=== PATIENT | female | born 1985 | race Caucasian/White ===

== ENCOUNTER 2016-11-14 15:13 | Outpatient (CLI) | payer OTHER ==
[2016-11-14 15:57] LABS: BASOPHILS # (AUTO) 0.1 10^3/uL (0.0-0.1); BASOPHILS % (AUTO) 0.6 %; EOSINOPHILS # (AUTO) 0.2 10^3/uL (0.0-0.7); EOSINOPHILS % (AUTO) 2.6 %; HCT - HEMATOCRIT 38.8 % (37.0-47.0); HGB - HEMOGLOBIN 13.1 g/dL (12.0-16.0); LYMPHOCYTES # (AUTO) 1.7 10^3/uL (1.5-3.5); LYMPHOCYTES % (AUTO) 18.9 %; MEAN CORPUSCULAR HEMOGLOBIN 30.5 pg (27.0-31.0); MEAN CORPUSCULAR HGB CONC 33.7 g/dL (32.0-36.0); MEAN CORPUSCULAR VOLUME 90.4 fL (81.0-99.0); MEAN PLATELET VOLUME 7.5 fL (7.9-10.8); MONOCYTES # (AUTO) 0.5 10^3/uL (0.0-1.0); MONOCYTES % (AUTO) 5.7 %; NEUTROPHILS # (AUTO) 6.5 10^3/uL (1.5-6.6); NEUTROPHILS % (AUTO) 72.2 %; RED BLOOD COUNT 4.29 10^6/uL (4.20-5.40); RED CELL DISTRIBUTION WIDTH 15.3 % (12.0-15.0)
[2016-11-14 16:10] LABS: ALBUMIN/GLOBULIN RATIO 1.3 (1.0-2.2); BILIRUBIN,TOTAL 0.3 mg/dL (0.2-1.0); BUN - BLOOD UREA NITROGEN 10 mg/dL (6-20); CALCIUM 8.8 mg/dL (8.5-10.3); CARBON DIOXIDE - CO2 26 mmol/L (21-32); CHLORIDE 106 mmol/L (101-111); CREATININE 0.6 mg/dL (0.4-1.0); GFR - MDRD 117 (>89); GLUCOSE 107 mg/dL (70-100); MAGNESIUM 1.9 mg/dL (1.7-2.8); POTASSIUM 3.4 mmol/L (3.5-5.0); SODIUM 138 mmol/L (135-145); TOTAL PROTEIN 6.8 g/dL (6.7-8.2)
[2016-11-14 16:51] LABS: IRON 87 ug/dL (28-170); TOTAL IRON BINDING CAPACITY 370 ug/dL (250-450); TRANSFERRIN 264 mg/dL (192-382)
[2016-11-14 16:53] LABS: FERRITIN 8.2 ng/mL (11.0-306.8)
[2016-11-14 17:38] LABS: FOLATE > 49.60 ng/mL (5.90 - >24.8)
== END 2016-11-14 15:14 | disposition home or self-care (01) ==
LOC: LAB 15:13
PROVIDERS: ATTEND Physician Assistant
DX: K50.80 Crohn's disease of both small and large intestine without complications (principal); R19.7 Diarrhea, unspecified
CPT/HCPCS: 36415; 80053; 82306; 82607; 82728; 82746; 83540; 83735; 84466; 84630; 85025; 85651; 86140

== ENCOUNTER 2016-11-16 12:00 | Outpatient (CLI) | payer OTHER ==
[2016-11-21 18:02] LABS: TEST RESULT REPORT (())
== END 2016-11-16 12:01 | disposition home or self-care (01) ==
LOC: LAB.R 12:00
PROVIDERS: ATTEND Physician Assistant
DX: R19.7 Diarrhea, unspecified (principal); K50.80 Crohn's disease of both small and large intestine without complications
CPT/HCPCS: 81599; 83993

== ENCOUNTER 2016-12-06 10:01 | Outpatient (CLI) | payer OTHER ==
[2016-12-07 14:37] LABS: HEPATITIS A AB TOTAL(IMMUNITY) NON-REACTIVE (NON-REACTIVE)
[2016-12-10 16:56] LABS: TEST RESULT REPORT (())
== END 2016-12-06 10:02 | disposition home or self-care (01) ==
LOC: LAB 10:01
PROVIDERS: ATTEND Physician Assistant
DX: K50.80 Crohn's disease of both small and large intestine without complications (principal)
CPT/HCPCS: 36415; 81599; 86317; 86704; 86708; 87340

== ENCOUNTER 2017-01-10 08:00 | Outpatient (CLI) | payer OTHER | END 2017-01-10 08:01 | disposition home or self-care (01) | LOC: LAB.R 08:00 | PROVIDERS: ATTEND Physician Assistant | DX: R19.7 Diarrhea, unspecified (principal); K50.80 Crohn's disease of both small and large intestine without complications | CPT/HCPCS: 83993 ==

== ENCOUNTER 2017-03-15 09:56 | Outpatient (CLI) | payer OTHER, MEDICAID ==
[2017-03-15 10:11] LABS: BASOPHILS # (AUTO) 0.1 10^3/uL (0.0-0.1); BASOPHILS % (AUTO) 0.5 %; EOSINOPHILS # (AUTO) 0.1 10^3/uL (0.0-0.7); EOSINOPHILS % (AUTO) 1.3 %; HCT - HEMATOCRIT 38.8 % (37.0-47.0); HGB - HEMOGLOBIN 13.5 g/dL (12.0-16.0); LYMPHOCYTES # (AUTO) 1.4 10^3/uL (1.5-3.5); LYMPHOCYTES % (AUTO) 13.7 %; MEAN CORPUSCULAR HEMOGLOBIN 31.9 pg (27.0-31.0); MEAN CORPUSCULAR HGB CONC 34.9 g/dL (32.0-36.0); MEAN CORPUSCULAR VOLUME 91.4 fL (81.0-99.0); MEAN PLATELET VOLUME 7.8 fL (7.9-10.8); MONOCYTES # (AUTO) 0.5 10^3/uL (0.0-1.0); MONOCYTES % (AUTO) 4.7 %; NEUTROPHILS # (AUTO) 8.3 10^3/uL (1.5-6.6); NEUTROPHILS % (AUTO) 79.8 %; RED BLOOD COUNT 4.24 10^6/uL (4.20-5.40); RED CELL DISTRIBUTION WIDTH 12.7 % (12.0-15.0); UNCORRECTED WHITE BLOOD COUNT 10.3 x10^3/uL; WHITE BLOOD COUNT 10.3 x10^3/uL (4.8-10.8)
[2017-03-15 10:37] LABS: BILIRUBIN,TOTAL 0.5 mg/dL (0.2-1.0); CALCIUM 8.8 mg/dL (8.5-10.3); CREATININE 0.6 mg/dL (0.4-1.0); POTASSIUM 3.4 mmol/L (3.5-5.0); TOTAL PROTEIN 6.9 g/dL (6.7-8.2)
== END 2017-03-15 09:57 | disposition home or self-care (01) ==
LOC: LAB 09:56
PROVIDERS: ATTEND Physician Assistant
DX: K50.80 Crohn's disease of both small and large intestine without complications (principal)
CPT/HCPCS: 36415; 80053; 85025

== ENCOUNTER 2017-05-03 15:24 | Outpatient (CLI) | payer OTHER, MEDICAID | END 2017-05-03 15:25 | disposition home or self-care (01) | LOC: LAB.R 15:24 | PROVIDERS: ATTEND Physician Assistant | DX: R19.7 Diarrhea, unspecified (principal) | CPT/HCPCS: 83993 ==

== ENCOUNTER 2017-06-14 10:00 | Outpatient (CLI) | payer OTHER, MEDICAID | END 2017-06-14 10:01 | disposition home or self-care (01) | LOC: LAB.R 10:00 | PROVIDERS: ATTEND Physician Assistant | DX: R19.7 Diarrhea, unspecified (principal); K50.80 Crohn's disease of both small and large intestine without complications | CPT/HCPCS: 83993 ==

== ENCOUNTER 2017-11-23 08:00 | Outpatient (CLI) | payer OTHER, MEDICAID | END 2017-11-23 08:01 | disposition home or self-care (01) | LOC: LAB.R 08:00 | PROVIDERS: ATTEND Physician Assistant | DX: R19.7 Diarrhea, unspecified (principal) | CPT/HCPCS: 81599 ==

== ENCOUNTER 2018-01-10 10:41 | Outpatient (CLI) | payer MEDICAID, OTHER | END 2018-01-10 10:42 | disposition home or self-care (01) | LOC: LAB.R 10:41 | PROVIDERS: ATTEND Physician Assistant | DX: R19.7 Diarrhea, unspecified (principal); K50.80 Crohn's disease of both small and large intestine without complications | CPT/HCPCS: 83993 ==

== ENCOUNTER 2018-03-19 12:07 | Outpatient (CLI) | payer OTHER ==
[2018-03-19 12:44] LABS: BASOPHILS % (AUTO) 0.5 %; EOSINOPHILS # (AUTO) 0.5 10^3/uL (0.0-0.7); EOSINOPHILS % (AUTO) 5.4 %; HGB - HEMOGLOBIN 13.3 g/dL (12.0-16.0); LYMPHOCYTES # (AUTO) 2.4 10^3/uL (1.5-3.5); LYMPHOCYTES % (AUTO) 26.4 %; MEAN CORPUSCULAR HEMOGLOBIN 30.9 pg (27.0-31.0); MEAN CORPUSCULAR HGB CONC 34.8 g/dL (32.0-36.0); MEAN CORPUSCULAR VOLUME 88.8 fL (81.0-99.0); MEAN PLATELET VOLUME 7.5 fL (7.9-10.8); MONOCYTES # (AUTO) 0.7 10^3/uL (0.0-1.0); MONOCYTES % (AUTO) 7.5 %; NEUTROPHILS # (AUTO) 5.5 10^3/uL (1.5-6.6); NEUTROPHILS % (AUTO) 60.2 %; PLT - PLATELET COUNT 308 10^3/uL (130-450); RED BLOOD COUNT 4.31 10^6/uL (4.20-5.40); RED CELL DISTRIBUTION WIDTH 12.9 % (12.0-15.0); WHITE BLOOD COUNT 9.1 x10^3/uL (4.8-10.8)
[2018-03-19 13:02] LABS: % IRON SATURATION 13 % (20-50); ALBUMIN/GLOBULIN RATIO 1.2 (1.0-2.2); ALKALINE PHOSPHATASE 102 IU/L (42-121); ALT ALANINE AMINOTRANSFERASE 34 IU/L (10-60); AST ASPARTATE AMINOTRANSFERASE 32 IU/L (10-42); BILIRUBIN,TOTAL 0.4 mg/dL (0.2-1.0); BUN - BLOOD UREA NITROGEN 14 mg/dL (6-20); CALCIUM 8.8 mg/dL (8.5-10.3); CARBON DIOXIDE - CO2 27 mmol/L (21-32); CHLORIDE 103 mmol/L (101-111); CREATININE 0.7 mg/dL (0.4-1.0); GFR - MDRD 97 (>89); GLUCOSE 92 mg/dL (70-100); IRON 45 ug/dL (28-170); SODIUM 135 mmol/L (135-145); TOTAL IRON BINDING CAPACITY 356 ug/dL (250-450); TOTAL PROTEIN 7.3 g/dL (6.7-8.2); TRANSFERRIN 254 mg/dL (192-382)
[2018-03-19 13:03] LABS: CRP - C-REACTIVE PROTEIN < 1.0 mg/dL (0-1.0)
[2018-03-19 13:19] LABS: FOLATE 10.68 ng/mL (5.90 - >24.8)
== END 2018-03-19 12:08 | disposition home or self-care (01) ==
LOC: LAB 12:07
PROVIDERS: ATTEND Physician Assistant
DX: K50.80 Crohn's disease of both small and large intestine without complications (principal)
CPT/HCPCS: 36415; 80053; 81599; 82607; 82728; 82746; 83540; 83993; 84466; 85025; 86140; 86480

== ENCOUNTER 2018-03-20 08:00 | Outpatient (CLI) | payer OTHER | END 2018-03-20 23:59 | disposition home or self-care (01) | LOC: LAB.R 08:00 | PROVIDERS: ATTEND Family Medicine | DX: L02.92 Furuncle, unspecified (principal) | CPT/HCPCS: 87070; 87075; 87205 ==

== ENCOUNTER 2018-05-11 12:53 | Outpatient (CLI) | payer OTHER ==
--- NOTE | 2018-05-12 11:05 | Ultrasound Report ---
Reason: LYMPHADENOPATHY Procedure Date: 05/11/2018 Accession Number: [id number] / [id number] Procedure: US - Head or Neck Soft Tissue CPT Code: FULL RESULT: EXAM: NECK ULTRASOUND EXAM DATE: 05/11/2018 01:42 PM. CLINICAL HISTORY: Lymphadenopathy. COMPARISON: HEAD OR NECK SOFT TISSUE 03/27/2017 5:33 PM. TECHNIQUE: Real-time sonographic imaging was performed by the plumber helper utilizing color-flow. Multiple senior sales representative static images were saved for review. FINDINGS: The bilateral soft tissues of the neck were examined by ultrasound with special attention to regions with palpable nodularity as directed by the patient. In the right postauricular region, palpable to the patient, is a 1.2 x 0.6 x 0.8 cm node with preserved architecture which does not meet size criteria for adenopathy. In the left neck postauricular region, palpable to the patient is a 0.4 x 0.2 x 0.3 cm ovoid well-circumscribed hypoechoic structure with increased through transmission and peripheral vascularity, small lymph node versus tiny cyst with no aggressive features. In the left neck at level 2B is a 1.3 x 0.3 x 1.1 cm lymph node palpable to the patient which demonstrates preserved architecture and does not meet size criteria for adenopathy. IMPRESSION: Palpable findings as described. RADIA
== END 2018-05-11 12:54 | disposition home or self-care (01) ==
LOC: DI 12:53
PROVIDERS: ATTEND Nurse Practitioner
DX: R59.0 Localized enlarged lymph nodes (principal)
CPT/HCPCS: 76536

== ENCOUNTER 2018-11-27 08:00 | Outpatient (CLI) | payer OTHER | END 2018-11-27 23:59 | disposition home or self-care (01) | LOC: LAB.R 08:00 | PROVIDERS: ATTEND Physician Assistant | DX: K50.80 Crohn's disease of both small and large intestine without complications (principal); R19.7 Diarrhea, unspecified | CPT/HCPCS: 83993; 87045; 87046; 87493 ==

== ENCOUNTER 2019-03-19 19:34 | Outpatient (CLI) | payer OTHER ==
--- NOTE | 2019-03-19 23:11 | Ultrasound Report ---
Reason: LEG EDEMA Procedure Date: 03/19/2019 Accession Number: [id number] / [id number] Procedure: US - Duplex Ext Veins Right CPT Code: Final Report FULL RESULT: EXAM: RIGHT LOWER EXTREMITY VENOUS ULTRASOUND EXAM DATE: 03/19/2019 08:31 PM. CLINICAL HISTORY: LEG EDEMA. COMPARISON: None. TECHNIQUE: Real-time sonographic vascular imaging was performed by the senior animal trainer through the lower extremity utilizing both color-flow and Doppler spectral analysis. Multiple fulfillment representative static images were saved for review. FINDINGS: Common Femoral Vein (CFV): Normal. CFV-GSV Junction: Normal. Profunda Femoral Vein (PFV): Normal. Femoral Vein (FV) Prox: Normal. Femoral Vein (FV) Mid: Normal. Femoral Vein (FV) Dist: Normal. Popliteal Vein: Normal. Posterior Tibial Veins: Normal. Peroneal Veins: Normal. Other: Nonocclusive superficial thrombosis within a varicose vein at the right mid calf at the area of pain and palpable cord. IMPRESSION: 1. No evidence for deep venous thrombosis. 2. Nonocclusive superficial thrombosis within a varicose vein at the right mid calf at the area of pain and palpable cord. RADIA The above call report findings were discussed with Betzy Perera by Dr. Sara Veras at 9:22 PM on 03/19/2019.
== END 2019-03-19 19:35 | disposition home or self-care (01) ==
LOC: DI 19:34
PROVIDERS: ATTEND Physician Assistant
DX: I82.811 Embolism and thrombosis of superficial veins of right lower extremity (principal); I83.891 Varicose veins of right lower extremity with other complications

== ENCOUNTER 2019-03-25 20:09 | Outpatient (CLI) | payer OTHER ==
--- NOTE | 2019-03-25 21:50 | Ultrasound Report ---
Reason: SVT F/U TO R/O EXTENSION RT LEG Procedure Date: 03/25/2019 Accession Number: [id number] / [id number] Procedure: US - Duplex Ext Veins Right CPT Code: Final Report FULL RESULT: EXAM: RIGHT LOWER EXTREMITY VENOUS ULTRASOUND EXAM DATE: 03/25/2019 09:23 PM. CLINICAL HISTORY: SVT F/U TO R/O EXTENSION RT LEG. COMPARISON: DUPLEX EXT VEINS RIGHT 03/19/2019 7:48 PM. TECHNIQUE: Real-time sonographic vascular imaging was performed by the sports director through the lower extremity utilizing both color-flow and Doppler spectral analysis. Multiple outbound sales representative static images were saved for review. FINDINGS: Common Femoral Vein (CFV): Normal. CFV-GSV Junction: Normal. Profunda Femoral Vein (PFV): Normal. Femoral Vein (FV) Prox: Normal. Femoral Vein (FV) Mid: Normal. Femoral Vein (FV) Dist: Normal. Popliteal Vein: Normal. Posterior Tibial Veins: Normal. Peroneal Veins: Normal. Contralateral Side CFV: Normal. Other: Small segment of superficial venous thrombosis involving a varicose vein in the medial calf is unchanged. IMPRESSION: No evidence for deep venous thrombosis. Unchanged small segment of superficial venous thrombosis. RADIA The call report notification system was initiated by Dr. Tuan Nava at 09:48 PM on 03/25/2019.
== END 2019-03-25 20:10 | disposition home or self-care (01) ==
LOC: DI 20:09
PROVIDERS: ATTEND Physician Assistant
DX: I82.819 Embolism and thrombosis of superficial veins of unspecified lower extremity (principal)

== ENCOUNTER 2019-05-22 15:16 | Outpatient (CLI) | payer OTHER, BC ==
[2019-05-22 15:34] LABS: BASOPHILS # (AUTO) 0.1 10^3/uL (0.0-0.1); BASOPHILS % (AUTO) 0.6 %; EOSINOPHILS # (AUTO) 0.3 10^3/uL (0.0-0.7); HGB - HEMOGLOBIN 12.1 g/dL (12.0-16.0); LYMPHOCYTES # (AUTO) 2.1 10^3/uL (1.5-3.5); LYMPHOCYTES % (AUTO) 19.8 %; MEAN CORPUSCULAR HEMOGLOBIN 29.2 pg (27.0-31.0); MEAN CORPUSCULAR HGB CONC 32.5 g/dL (32.0-36.0); MEAN CORPUSCULAR VOLUME 89.6 fL (81.0-99.0); MEAN PLATELET VOLUME 9.3 fL (7.9-10.8); MONOCYTES # (AUTO) 0.6 10^3/uL (0.0-1.0); MONOCYTES % (AUTO) 5.9 %; NEUTROPHILS # (AUTO) 7.6 10^3/uL (1.5-6.6); NEUTROPHILS % (AUTO) 70.2 %; PLT - PLATELET COUNT 325 10^3/uL (130-450); RED BLOOD COUNT 4.15 10^6/uL (4.20-5.40); WHITE BLOOD COUNT 10.8 x10^3/uL (4.8-10.8)
[2019-05-22 15:53] LABS: % IRON SATURATION 7 % (20-50); ALBUMIN/GLOBULIN RATIO 1.3 (1.0-2.2); ALKALINE PHOSPHATASE 51 IU/L (42-121); ALT ALANINE AMINOTRANSFERASE 15 IU/L (10-60); AST ASPARTATE AMINOTRANSFERASE 20 IU/L (10-42); BILIRUBIN,TOTAL 0.4 mg/dL (0.2-1.0); BUN - BLOOD UREA NITROGEN 13 mg/dL (6-20); CARBON DIOXIDE - CO2 26 mmol/L (21-32); CHLORIDE 103 mmol/L (101-111); CREATININE 0.8 mg/dL (0.4-1.0); GFR - MDRD 83 (>89); GLUCOSE 119 mg/dL (70-100); IRON 31 ug/dL (28-170); SODIUM 139 mmol/L (135-145); TOTAL IRON BINDING CAPACITY 459 ug/dL (250-450); TOTAL PROTEIN 7.1 g/dL (6.7-8.2); TRANSFERRIN 328 mg/dL (192-382)
[2019-05-22 15:55] LABS: CRP - C-REACTIVE PROTEIN < 1.0 mg/dL (0-1.0)
[2019-05-22 16:31] LABS: FERRITIN 3.7 ng/mL (11.0-306.8)
[2019-05-22 16:34] LABS: FOLATE 13.65 ng/mL (5.90 - >24.8)
== END 2019-05-22 15:17 | disposition home or self-care (01) ==
LOC: LAB 15:16
PROVIDERS: ATTEND Physician Assistant
DX: K50.80 Crohn's disease of both small and large intestine without complications (principal)
CPT/HCPCS: 36415; 80053; 82306; 82607; 82728; 82746; 83540; 84466; 85025; 86140

== ENCOUNTER 2019-06-11 08:00 | Outpatient (CLI) | payer OTHER, BC | END 2019-06-11 23:59 | disposition home or self-care (01) | LOC: LAB.R 08:00 | PROVIDERS: ATTEND Physician Assistant | DX: K50.80 Crohn's disease of both small and large intestine without complications (principal) | CPT/HCPCS: 83993 ==

== ENCOUNTER 2019-09-21 07:00 | Outpatient (CLI) | payer OTHER, BC | END 2019-09-21 23:59 | disposition home or self-care (01) | LOC: LAB.R 07:00 | PROVIDERS: ATTEND Physician Assistant | DX: K50.80 Crohn's disease of both small and large intestine without complications (principal) | CPT/HCPCS: 83993 ==

== ENCOUNTER 2019-12-16 03:08 | Emergency (ER) | payer BC, OTHER ==
--- NOTE | 2019-12-16 03:20 | ED Physician Documentation ---
PD HPI ABD PAIN - Stated complaint Stated Complaint: ABD PX/VOMITING - History obtained from History obtained from: Patient - History of Present Illness Timing - onset: How many days ago (2) Timing - duration: Days (2) Timing - details: Gradual onset, Still present (worse this evening with now vomiting several times starting few hours ago.) Quality: Cramping, Aching, Pain Location: Periumbilical, RLQ Radiation: No: Chest, Lower back Improved by: Laying still. No: Vomiting Worsened by: Eating, Moving, Palpation Associated symptoms: Nausea, Vomiting, Diarrhea (typically has diarrhea and takes Loperamide for it. Had slight increase in diarrhea for few days, but now no BM since yesterday.). No: Fever Similar symptoms before: Diagnosis (history of Crohns disease and has had similar symptoms with initial diagnosis epidose 2004 and few similar episodes with flares. Has had obstruction in the past. 2 prior bowel resections, last in 2007.) Recently seen: Clinic (her PMD has been trying to improve her Crohns symptoms, with Rx of methotrexate 60 mg weekly the past 3 months, and Ustekinumab med monthly.) Review of Systems Constitutional: reports: Chills, Myalgias, Fatigue. denies: Fever Nose: denies: Rhinorrhea / runny nose, Congestion Throat: denies: Sore throat Respiratory: denies: Cough GI: reports: Abdominal Pain, Abdominal Swelling (the past several hours), Nausea, Vomiting, Diarrhea. denies: Constipation, Hematemesis, Bloody / black stool : denies: Dysuria, Frequency, Discharge Skin: denies: Rash Neurologic: reports: Generalized weakness. denies: Near syncope, Altered mental status, Headache PD PAST MEDICAL HISTORY - Past Medical History Cardiovascular: None Respiratory: None Neuro: None Endocrine/Autoimmune: None GI: Crohn's disease CLINICAL AIDE: None - Past Surgical History General: Appendectomy, Bowel surgery - Present Medications Home Medications: Ambulatory Orders Medication Instructions Recorded Confirmed Cholecalciferol [Vitamin D3] 10,000 unit PO DAILY 07/04/18 07/04/18 Ferrous Gluconate [Iron] 240 mg PO DAILY 07/04/18 07/04/18 Loperamide [Imodium] 2 mg PO QID 07/04/18 07/04/18 Pnv No.95/Ferrous Fum/Folic AC 1 each PO DAILY 07/04/18 07/04/18 [ Caplet] Vitamin B Complex 1 each PO DAILY 07/04/18 07/04/18 Hydrocodone/Acetaminophen [Butler 1 each PO Q6H PRN #20 tablet 12/16/19 5-325 Tablet] Ondansetron Odt [Zofran] 4 mg TL Q6H PRN #20 tablet 12/16/19 dexAMETHasone [Decadron] 4 mg PO DAILY #7 tablet 12/16/19 metroNIDAZOLE [Flagyl] 500 mg PO BID #14 tablet 12/16/19 - Allergies Allergies/Adverse Reactions: Allergies Allergy/AdvReac Type Severity Reaction Status Date / Time morphine Allergy Rash Verified 12/16/19 03:22 PD ED PE NORMAL - Vitals Vital signs reviewed: Yes - General General: Alert and oriented X 3, Well developed/nourished, Other (Appears in pain with lying on her side and knees drawn up.) - HEENT HEENT: Pharynx benign - Neck Neck: Supple, no meningeal sign, No adenopathy - Cardiac Cardiac: RRR, No murmur - Respiratory Respiratory: Clear bilaterally - Abdomen Abdomen: No organomegaly, Other (Bowel sounds are present and slightly hyperactive in the lower abdomen. There is some distention noted mid to lower abdomen. She is particularly tender in the lower abdomen to palpation and percussion and also has some referred tenderness.). No: Normal bowel sounds (increased lower abd) - Derm Derm: Warm and dry. No: Normal color (mildly pale) - Extremities Extremities: No tenderness to palpate, Normal ROM s pain, No edema, No calf tenderness / cord - Neuro Neuro: Alert and oriented X 3, No motor deficit, Normal speech Results - Vitals Vitals: Vital Signs - 24 hr 12/16/19 12/16/19 03:10 05:00 Temperature 36.2 C L Heart Rate 75 80 Respiratory 20 14 Rate Blood Pressure 139/85 H 118/74 O2 Saturation 100 98 Oxygen O2 Source Room air - Labs Labs: Laboratory Tests 12/16/19 12/16/19 12/16/19 03:30 03:30 03:30 WBC 13.0 H RBC 4.31 Hgb 13.9 Hct 40.7 MCV 94.4 MCH 32.3 H MCHC 34.2 RDW 13.2 Plt Count 311 MPV 9.1 Neut # (Auto) 11.1 H Lymph # (Auto) 1.1 L [place] # (Auto) 0.6 Eos # (Auto) 0.2 Baso # (Auto) 0.1 Absolute Nucleated RBC 0.00 Nucleated RBC % 0.0 ESR Sodium 136 Potassium 3.6 Chloride 102 Carbon Dioxide 26 Anion Gap 8.0 BUN 14 Creatinine 0.7 Estimated GFR (MDRD) 96 Glucose 146 H Calcium 9.3 Magnesium Iron Total Bilirubin 1.0 AST 59 H ALT 52 Alkaline Phosphatase 85 Total Protein 7.5 Albumin 4.2 Globulin 3.3 Albumin/Globulin Ratio 1.3 Lipase 25 Urine Color YELLOW Urine Clarity CLEAR Urine pH 8.5 H Ur Specific [place] 1.015 Urine Protein NEGATIVE Urine Glucose (UA) NEGATIVE Urine Ketones NEGATIVE Urine Occult Blood NEGATIVE Urine Nitrite NEGATIVE Urine Bilirubin NEGATIVE Urine Urobilinogen 1 (NORMAL) Ur Leukocyte Esterase NEGATIVE Ur Microscopic Review NOT INDICATED Urine Culture Comments NOT INDICATED Urine HCG, Qual 12/16/19 12/16/19 12/16/19 03:30 03:30 03:30 WBC RBC Hgb Hct MCV MCH MCHC RDW Plt Count MPV Neut # (Auto) Lymph # (Auto) [place] # (Auto) Eos # (Auto) Baso # (Auto) Absolute Nucleated RBC Nucleated RBC % ESR 7 Sodium Potassium Chloride Carbon Dioxide Anion Gap BUN Creatinine Estimated GFR (MDRD) Glucose Calcium Magnesium 2.0 Iron 51 Total Bilirubin AST ALT Alkaline Phosphatase Total Protein Albumin Globulin Albumin/Globulin Ratio Lipase Urine Color Urine Clarity Urine pH Ur Specific [place] 1.015 Urine Protein Urine Glucose (UA) Urine Ketones Urine Occult Blood Urine Nitrite Urine Bilirubin Urine Urobilinogen Ur Leukocyte Esterase Ur Microscopic Review Urine Culture Comments Urine HCG, Qual NEGATIVE - Rads (name of study) abd/pelvic CT Radiology: Prelim report reviewed (Edema and wall thickening in the distal small bowel with some upstream dilated loops and normal-appearing past the a sending colon. Consistent with inflammatory bowel disease and mechanical obstruction), See rad report PD MEDICAL DECISION MAKING - ED course Complexity details: reviewed results, re-evaluated patient (The patient is feeling a lot better. She requested oral fluids. She had a little bit of increased pain with that but no nausea. She has had similar episodes in the past where she was able to treat herself at home and would prefer trying that. She is encouraged to return if symptoms of worse pain), considered differential (Likely a flare of her Crohn's. We will get CT scan to evaluate for potential bowel obstruction given the distention and vomiting the last several hours.), d/w patient Departure - Departure Disposition: 01 Home, Self Care Clinical Impression: Exacerbation of Crohn's disease of small intestine, Lower abdominal pain, Mechanical obstruction of the intestine Nausea and vomiting Qualifiers: Vomiting type: bilious vomiting Qualified Code(s): R11.14 - Bilious vomiting Condition: Stable Record reviewed to determine appropriate education?: Yes Instructions: ED Inflam Bowel Disease Crohn Follow-Up: Betzy Cooper PA-C [Primary Care Provider] - Prescriptions: dexAMETHasone [Decadron] 4 mg PO DAILY #7 tablet metroNIDAZOLE [Flagyl] 500 mg PO BID #14 tablet Hydrocodone/Acetaminophen [Butler 5-325 Tablet] 1 each PO Q6H PRN #20 tablet PRN Reason: Pain Ondansetron Odt [Zofran] 4 mg TL Q6H PRN #20 tablet PRN Reason: Nausea / Vomiting Comments: Rest at home and liquids only initially today. Use ondansetron every 4-6 hours if needed for nausea. Tylenol or hydrocodone if needed for pain. Decadron steroid daily for a week and metronidazole antibiotic twice daily for a week. Consult with your GI specialist later today to see if they have any other suggestions. Return to the ER if symptomatic enough again as there is reasonable swelling of the distal small bowel causing a blockage pattern of the intestine. If your symptoms worsen again, you might need hospitalization with IV fluids/meds until it improves enough.
[2019-12-16] MEDS: SODIUM CHLORIDE 0.9% 1,000 ML IV STA ×3 (03:35→05:03)
[2019-12-16 03:39] LABS: BASOPHILS # (AUTO) 0.1 10^3/uL (0.0-0.1); BASOPHILS % (AUTO) 0.4 %; EOSINOPHILS # (AUTO) 0.2 10^3/uL (0.0-0.7); EOSINOPHILS % (AUTO) 1.4 %; HGB - HEMOGLOBIN 13.9 g/dL (12.0-16.0); LYMPHOCYTES # (AUTO) 1.1 10^3/uL (1.5-3.5); LYMPHOCYTES % (AUTO) 8.1 %; MEAN CORPUSCULAR HEMOGLOBIN 32.3 pg (27.0-31.0); MEAN CORPUSCULAR HGB CONC 34.2 g/dL (32.0-36.0); MEAN CORPUSCULAR VOLUME 94.4 fL (81.0-99.0); MEAN PLATELET VOLUME 9.1 fL (7.9-10.8); MONOCYTES # (AUTO) 0.6 10^3/uL (0.0-1.0); MONOCYTES % (AUTO) 4.5 %; NEUTROPHILS # (AUTO) 11.1 10^3/uL (1.5-6.6); NEUTROPHILS % (AUTO) 85.3 %; PLT - PLATELET COUNT 311 10^3/uL (130-450); RED BLOOD COUNT 4.31 10^6/uL (4.20-5.40); RED CELL DISTRIBUTION WIDTH 13.2 % (12.0-15.0)
[2019-12-16 03:43] LABS: BILIRUBIN,URINE NEGATIVE (NEGATIVE); GLUCOSE, URINE (UA) NEGATIVE (NEGATIVE); KETONES,URINE (UA) NEGATIVE (NEGATIVE); LEUKOCYTE ESTERASE, URINE NEGATIVE (NEGATIVE); NITRITE,URINE NEGATIVE (NEGATIVE); OCCULT BLOOD,URINE NEGATIVE (NEGATIVE); PH,URINE 8.5 PH (5.0-7.5); PROTEIN,URINE NEGATIVE (NEGATIVE); UROBILINOGEN,URINE 1 (NORMAL) E.U./dL (NORMAL)
[2019-12-16 03:44] LABS: CLARITY,URINE CLEAR (CLEAR)
[2019-12-16] MEDS: DEXAMETHASONE 10 MG/ML VIAL IVP STA (03:50)
[2019-12-16] MEDS: ONDANSETRON 4 MG/2 ML VIAL IVP STA (03:50)
[2019-12-16] MEDS: HYDROmorphone 1 MG/ML CARPUJECT IVP STA ×2 (03:50→05:02)
[2019-12-16 03:52] LABS: ALBUMIN 4.2 g/dL (3.2-5.5); ALBUMIN/GLOBULIN RATIO 1.3 (1.0-2.2); CALCIUM 9.3 mg/dL (8.5-10.3); CREATININE 0.7 mg/dL (0.4-1.0); TOTAL PROTEIN 7.5 g/dL (6.7-8.2)
[2019-12-16] MEDS ORDERED: IOVERSOL 320 100 ML VIAL IVP ONE (04:06)
[2019-12-16 04:20] LABS: HCG UR QUAL NEGATIVE
[2019-12-16] MEDS: IOVERSOL 320 100 ML VIAL IVP ONE (04:35)
[2019-12-16] MEDS: KETOROLAC 15 MG/ML VIAL IVP STA (05:02)
[2019-12-16] MEDS: metroNIDAZOLE 500 MG/100 ML 500 MG/100 ML BAG IV ONE (05:40)
[2019-12-16] MEDS: HYDROcod/ACET 5/325 Prepack 4 PO STA (06:26)
[2019-12-16] MEDS: ONDANSETRON ODT 4 MG Prepack 2 TL PRN (06:26)
[2019-12-16 06:42] VITALS: BP 128/69
--- NOTE | 2019-12-16 07:43 | CT Report ---
PROCEDURE: Abdomen/Pelvis W INDICATIONS: Abdominal pain and vomiting; h/o Crohn disease CONTRAST: IV CONTRAST: Optiray 320 ml: 100 PO CONTRAST: *NO PO CONTRAST TECHNIQUE: After the administration of intravenous contrast, 5 mm thick sections acquired from the diaphragms to the symphysis. 5 mm thick coronal and sagittal reformats were acquired. For radiation dose reducti on, the following was used: automated exposure control, adjustment of mA and/or kV according to mimi ent size. COMPARISON: None. FINDINGS: Image quality: Excellent. ABDOMEN: Lung bases: Lung bases are clear. Heart size is normal. Solid organs: Liver and spleen are normal in size and enhancement. Gallbladder unremarkable. Bilia ry system is non dilated. Pancreas enhances normally. No adrenal nodules. Kidneys demonstrate norm al size and enhancement, without hydronephrosis. Peritoneum and bowel: Postsurgical changes of anastomosis at the distal most small bowel. Small bowel wall thickening and adjacent inflammatory changes at the neoterminal ileum as it inserts into the ce cum, with the single layer bowel wall thickness of 1.5 cm. This results in significant narrowing of t he small bowel to a maximum diameter of 6-7 mm proximal to this there is dilatation of the mid and di stal small bowel with numerous loops of bowel measuring up to 4 cm. Free fluid and inflammatory sousa es are present along the distal small bowel in association with dilated loops. The colon is unremarka ble. Nodes and vessels: Mild central and right mesenteric lymphadenopathy. No retroperitoneal lymphadenopa thy. Miscellaneous: No ventral hernias. PELVIS: Genitourinary: Bladder wall thickness is normal. Miscellaneous: No inguinal hernias or adenopathy. Bones: No suspicious bony lesions. No vertebral body compression fractures. IMPRESSION: Post changes of prior terminal ileum resection and primary anastomosis. Edematous bowel wall thickeni ng at the neoterminal ileum which results in moderate narrowing without complete obstruction. Dilated loops of small bowel proximal to this transition point are consistent with mild partial small bowel obstruction. Close clinical observation recommended. No significant change from preliminary report. Reviewed by: Ilir Stauffer MD on 12/16/2019 7:41 AM PDT Approved by: Ilir Stauffer MD on 12/16/2019 7:41 AM PDT Station ID: [id number]
== END 2019-12-16 06:50 | disposition home or self-care (01) ==
LOC: ED 03:08
DX: K50.012 Crohn's disease of small intestine with intestinal obstruction (principal); R11.14 Bilious vomiting
CPT/HCPCS: 36415; 74177; 80053; 81003; 81025; 83540; 83690; 83735; 85025; 85651; 96361; 96365; 96375; 99284; 99285; J1170; Q9967; 81001; 87086

== ENCOUNTER 2020-03-21 17:14 | Outpatient (CLI) | payer OTHER, BC | END 2020-03-21 17:15 | disposition home or self-care (01) | LOC: COV 17:14 | PROVIDERS: ATTEND Family Medicine | DX: R05 Cough (principal); R07.0 Pain in throat; R09.81 Nasal congestion; J34.89 Other specified disorders of nose and nasal sinuses; Z20.828 Contact with and (suspected) exposure to other viral communicable diseases ==

== ENCOUNTER 2020-05-11 08:00 | Outpatient (CLI) | payer OTHER, BC ==
[2020-05-11 19:16] LABS: THYROID STIMULATING HORMONE 0.61 uIU/mL (0.34-5.60)
[2020-05-11 19:17] LABS: FREE T3 3.59 pg/mL (2.5-3.9)
[2020-05-11 19:18] LABS: FREE T4 (FREE THYROXINE) 1.01 ng/dL (0.58-1.64)
== END 2020-05-11 08:01 | disposition home or self-care (01) ==
LOC: LAB.WCP 08:00
PROVIDERS: ATTEND Family Medicine
DX: R59.1 Generalized enlarged lymph nodes (principal); E01.0 Iodine-deficiency related diffuse (endemic) goiter
CPT/HCPCS: 36415; 84439; 84443; 84481

== ENCOUNTER 2020-05-13 08:48 | Outpatient (CLI) | payer OTHER, BC ==
--- NOTE | 2020-05-13 16:21 | Ultrasound Report ---
PROCEDURE: Head or Neck Soft Tissue INDICATIONS: THYROMEGALY TECHNIQUE: Real-time scanning was performed of the thyroid gland, with image documentation. COMPARISON: Thyroid ultrasound 03/27/2017, 05/11/2018 FINDINGS: Right: Thyroid lobe measures 6.0 x 1.7 x 1.9 cm, and is homogeneous in echotexture. Left: Thyroid lobe measures 5.5 x 1.5 x 1.7 cm, and is homogenous in echotexture. Isthmus: 5 mm thick. Nodule number: One Location: Right posterior lateral lobe Size: 1.0 x 0.6 x 0.8 cm compared to 0.8 x 0.6 x 0.7 cm. Composition: Cystic Echogenicity: Anechoic Shape: wider than tall. Margins: Smooth Echogenic foci: No definitively visualized calcifications Total points: 0 ACR TI-RADS category: 1 IMPRESSION: Thyroid cyst unchanged compared to prior exams. Given TI-RADS Category 1, no additional follow-up is recommended. ACR TI-RADS definitions and recommendations: TI-RADS 1 (benign): 0 points. FNA not needed. TI-RADS 2 (not suspicious): 2 points. FNA not needed. TI-RADS 3 (mildly suspicious): 3 points. ? FNA if 2.5 cm or larger, follow up if 1.5 cm or larger (at 1, 3, and 5 years). TI-RADS 4 (moderately suspicious): 4-6 points. ? FNA if 1.5 cm or larger, follow up if 1 cm or larger (at 1, 2, 3, and 5 years). TI-RADS 5 (highly suspicious): 7 points or more. ? FNA if 1 cm or larger, follow up if 0.5 cm or larger (every year for 5 years). Reviewed by: Cari Blackman MD on 05/13/2020 4:19 PM PST Approved by: Cari Blackman MD on 05/13/2020 4:19 PM PST Station ID: [id number]
== END 2020-05-13 08:49 | disposition home or self-care (01) ==
LOC: DI 08:48
PROVIDERS: ATTEND Family Medicine
DX: E04.1 Nontoxic single thyroid nodule (principal)

== ENCOUNTER 2020-05-30 07:00 | Outpatient (CLI) | payer OTHER, BC ==
--- NOTE | 2020-05-30 16:27 | XRAY Report ---
PROCEDURE: Ankle 3 View LT INDICATIONS: LEFT ANKLE PAIN TECHNIQUE: 3 views of the ankle were acquired. COMPARISON: None FINDINGS: Bones: No fractures or dislocations. Ankle mortise is normally aligned. No suspicious bony lesions . Soft tissues: No tibiotalar joint effusion. Achilles tendon appears normal. IMPRESSION: No visualized acute fracture or dislocation. However, occult injury cannot be excluded. Recommend short interval imaging follow-up in 7-10 days as clinically indicated for additional evalua tion. Reviewed by: Cari Blackman MD on 05/30/2020 4:25 PM [facility] Approved by: Cari Blackman MD on 05/30/2020 4:25 PM [facility] Station ID: [id number]
== END 2020-05-30 23:59 | disposition home or self-care (01) ==
LOC: DI.N 07:00
PROVIDERS: ATTEND Family Medicine
DX: M25.572 Pain in left ankle and joints of left foot (principal)

== ENCOUNTER 2020-07-20 08:00 | Outpatient (CLI) | payer OTHER, BC | END 2020-07-20 23:59 | disposition home or self-care (01) | LOC: LAB.R 08:00 | PROVIDERS: ATTEND Physician Assistant | DX: K50.80 Crohn's disease of both small and large intestine without complications (principal) | CPT/HCPCS: 83993 ==

== ENCOUNTER 2023-01-21 08:47 | Emergency (ER) | payer OTHER ==
[2023-01-21 09:01] VITALS: BP 140/89; O2SAT 98
--- NOTE | 2023-01-21 09:23 | ED Physician Documentation ---
History of Present Illness - Stated complaint Stated Complaint: LT LEG PX,SWOLLEN,REDNESS - Chief complaint Chief Complaint: Ext Problem - History obtained from History obtained from: Patient - History of Present Illness Timing: Today Pain level max: 1 Pain level now: 1 - Additonal information Additional information: 37-year-old female with a history of Crohn's disease presents to the emergency department stating that she noticed a small area of redness and swelling to the medial aspect of the left lower leg, calf. She states she is concerned about a blood clot. No injury. No drainage. No fevers. No chills. Nothing makes it better or worse. No recent travel. No prolonged immobilization. 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 : None HEENT: None Psych: None Musculoskeletal: None Derm: None - Past Surgical History Past Surgical History: Yes General: Appendectomy, Bowel surgery - Present Medications Home Medications: Ambulatory Orders Medication Instructions Recorded Confirmed Colestipol HCl [Colestid] 1 gm PO BID 01/21/23 01/21/23 Cyclobenzaprine [Flexeril] 10 mg PO TID PRN 01/21/23 01/21/23 Desogestrel-Ethinyl Estradiol 1 each PO DAILY 01/21/23 01/21/23 [Apri 28 Day Tablet] Rizatriptan Benzoate [Rizatriptan] 10 mg PO DAILY PRN 01/21/23 01/21/23 Vedolizumab [Entyvio] 300 mg IV .EVERY 6 WEEKS 01/21/23 01/21/23 - Allergies Allergies/Adverse Reactions: Allergies Allergy/AdvReac Type Severity Reaction Status Date / Time lanolin Allergy Rash Verified 01/21/23 08:54 morphine Allergy Rash Verified 12/16/19 03:22 - Social History Does the pt smoke?: No Smoking Status: Never smoker Does the pt drink ETOH?: No Does the pt have substance abuse?: No - Immunizations Immunizations are current?: Yes - POLST Patient has POLST: No PD ED PE NORMAL - Vitals Vital signs reviewed: Yes - General General: Alert and oriented X 3, No acute distress - HEENT HEENT: Moist mucous membranes - Derm Derm: Warm and dry - Extremities Extremities: Other (Left calf - 2 cm long area of erythema and firm palpable vein. Mild posterior calf tenderness. Neurovascular intact. No significant overall leg swelling.) - Neuro Neuro: Alert and oriented X 3 Results - Vitals Vitals: Vital Signs - 24 hr 01/21/23 08:51 Temperature 36.8 C Heart Rate 102 H Respiratory 16 Rate Blood Pressure 140/89 H O2 Saturation 98 Oxygen O2 Source Room air - Rads (name of study) Duplex ultrasound left lower extremity Relevant Findings:: Final report received, See rad report PD Medical Decision Making - ED course Complexity details: reviewed results, re-evaluated patient, considered differential, d/w patient ED course: 37-year-old female with what appears to be superficial thrombophlebitis of the left lower extremity. Duplex ultrasound ordered to rule out DVT. The ultrasound is negative for DVT. Does have a Dimas's cyst and can follow-up with her PCP for this. We will continue supportive care and have her follow-up with her doctor. Patient counseled regarding signs and symptoms for which I believe and urgent re-evaluation would be necessary. Patient with good understanding of and agreement to plan and is comfortable going home at this time This document was made in part using voice recognition software. While efforts are made to proofread this document, sound alike and grammatical errors may occur. Departure - Departure Disposition: 01 Home, Self Care Clinical Impression: Superficial thrombophlebitis Qualifiers: Superficial thrombophlebitis-Involved body area: lower extremity Laterality: left Qualified Code(s): I80.02 - Phlebitis and thrombophlebitis of superficial vessels of left lower extremity Bakers cyst Qualifiers: Laterality: left Qualified Code(s): M71.22 - Synovial cyst of popliteal space [Dimas], left knee Condition: Good Instructions: ED Cyst Dimas, ED Phlebitis Superficial Follow-Up: Betzy Cooper PA-C [Primary Care Provider] - As Needed Comments: Please continue warm compresses at home. This should improve on its own. If you are not better in 1 week, you should be reevaluated by your primary care provider. Your ultrasound does not show any evidence of a deep blood clot today. Forms: PCP List Discharge Date/Time: 01/21/23 10:08
--- NOTE | 2023-01-21 10:10 | Ultrasound Report ---
PROCEDURE: Duplex Ext Veins Left INDICATIONS: LLE swelling TECHNIQUE: Real-time imaging, as well as color and pulse Doppler interrogation, were performed of the lower extr emity deep veins from the inguinal ligament to the popliteal fossa. Attempted visualization of the ca lf veins was performed. COMPARISON: None. FINDINGS: The deep veins are normally compressible, and free of intraluminal thrombus. Color and pu lse Doppler demonstrate normal phasic intraluminal flow. There is normal augmentation response to di stal compression maneuver. Popliteal cyst measures 6.3 x 1.9 x 3.4 cm IMPRESSION: No deep venous thrombosis of the visualized lower extremity. Reviewed by: Moi Mehta MD on 01/21/2023 9:09 AM AN[facility] Approved by: Moi Mehta MD on 01/21/2023 9:09 AM ANNA Station ID: [id number]
== END 2023-01-21 10:08 | disposition home or self-care (01) ==
LOC: ED 08:47
DX: I80.02 Phlebitis and thrombophlebitis of superficial vessels of left lower extremity (principal); M71.22 Synovial cyst of popliteal space [Baker], left knee
CPT/HCPCS: 99283; 99284

== ENCOUNTER 2023-01-27 14:24 | Emergency (ER) | payer OTHER ==
--- NOTE | 2023-01-27 17:22 | Ultrasound Report ---
PROCEDURE: Duplex Ext Veins Left INDICATIONS: leg pain TECHNIQUE: Real-time imaging, as well as color and pulse Doppler interrogation, were performed of the lower extr emity deep veins from the inguinal ligament to the popliteal fossa. Attempted visualization of the ca lf veins was performed. COMPARISON: 01/21/2023 FINDINGS: The deep veins are normally compressible, and free of intraluminal thrombus. Color and pu lse Doppler demonstrate normal phasic intraluminal flow. There is normal augmentation response to di stal compression maneuver. Superficial venous thrombosis proximally and medially as well as anterior and superior to the knee, w ithout compressibility. A left popliteal cyst is again seen and measures 2.9 x 5.3 x 1.7 cm. IMPRESSION: No deep venous thrombosis of the visualized lower extremity. There is a superficial venous thrombosis can be seen. Note: Concordant preliminary findings given by the telephone sex worker upon the completion of the examination to Lisa Munguia. Reviewed by: Jonathan Dave MD on 01/27/2023 4:20 PM [facility] Approved by: Jonathan Dave MD on 01/27/2023 4:20 PM ANNA Station ID: [id number]
--- NOTE | 2023-01-27 17:25 | ED Physician Documentation ---
History of Present Illness - Stated complaint Stated Complaint: LT LEG SWELLING,REDNESS, PX - Chief complaint Chief Complaint: General - Additonal information Additional information: 37-year-old female presents to the emergency department for evaluation of redness and warmth on her left medial thigh and area just above her knee. Seen about 1 week ago for similar on the lower leg. Ultrasound showed a superficial thrombophlebitis but no DVT. Patient has a history of Crohn's and is on control. She also reports that she had COVID infection about 3 weeks ago. Denying chest pain, shortness of air. Review of Systems Skin: reports: Lesions PD PAST MEDICAL HISTORY - Past Medical History Cardiovascular: None Respiratory: None Neuro: None Endocrine/Autoimmune: None GI: Crohn's disease [employer]: None : None HEENT: None Psych: None Musculoskeletal: None Derm: None - Past Surgical History Past Surgical History: Yes General: Appendectomy, Bowel surgery - Present Medications Home Medications: Ambulatory Orders Medication Instructions Recorded Confirmed Colestipol HCl [Colestid] 1 gm PO BID 01/21/23 01/21/23 Cyclobenzaprine [Flexeril] 10 mg PO TID PRN 01/21/23 01/21/23 Desogestrel-Ethinyl Estradiol 1 each PO DAILY 01/21/23 01/21/23 [Apri 28 Day Tablet] Rizatriptan Benzoate [Rizatriptan] 10 mg PO DAILY PRN 01/21/23 01/21/23 Vedolizumab [Entyvio] 300 mg IV .EVERY 6 WEEKS 01/21/23 01/21/23 - Allergies Allergies/Adverse Reactions: Allergies Allergy/AdvReac Type Severity Reaction Status Date / Time lanolin Allergy Rash Verified 01/21/23 08:54 morphine Allergy Rash Verified 12/16/19 03:22 - Social History Does the pt smoke?: No Smoking Status: Never smoker Does the pt drink ETOH?: No Does the pt have substance abuse?: No - Immunizations Immunizations are current?: Yes - POLST Patient has POLST: No PD ED PE EXPANDED - Extremities Extremities: Left knee (Area of superficial erythema without induration left medial thigh measuring approximately 5 cm as well as left lower medial thigh just above the patella measuring about 3 cm. No posterior calf pain tenderness.) Results - Vitals Vitals: Vital Signs - 24 hr 01/27/23 14:29 Temperature 36.3 C L Heart Rate 98 Respiratory 18 Rate Blood Pressure 131/76 H O2 Saturation 100 Oxygen O2 Source Room air PD Medical Decision Making - ED course Complexity details: reviewed results ED course: Patient is a 37-year-old female returns emergency department for evaluation of superficial erythema without induration on her left medial and lower thigh. Seen about 1 week ago for similar on the left lower leg found to have superficial thrombophlebitis. Ultrasound today again confirms superficial thrombophlebitis without evidence of a DVT. The initial lesion on the lower leg seems to have resolved with the use of warm compress and Tylenol. Same was advised for the patient today. Advise close follow-up with PCP. The usual emergent return precautions for concerns of a DVT were discussed. Departure - Departure Disposition: 01 Home, Self Care Clinical Impression: Superficial thrombophlebitis Qualifiers: Superficial thrombophlebitis-Involved body area: lower extremity Laterality: left Qualified Code(s): I80.02 - Phlebitis and thrombophlebitis of superficial vessels of left lower extremity Instructions: ED Phlebitis Superficial Comments: Rebecca the ultrasound today again confirms a superficial thrombophlebitis of the veins in your left upper leg. There is no deep vein thrombus. I would expect these areas to resolve much the same way that you are lower leg did. Warm compress and Tylenol should be used for discomfort. Please follow closely with your primary care doctor. If this continues to be a recurrent concern they may be able to help manage this by making referral to vascular surgery. Return to the ER if you develop any leg swelling, have chest pain, shortness of air or develop any fevers.
[2023-01-27 17:33] VITALS: BP 140/92; O2SAT 99
== END 2023-01-27 17:30 | disposition home or self-care (01) ==
LOC: ED 14:24
DX: I80.02 Phlebitis and thrombophlebitis of superficial vessels of left lower extremity (principal)
CPT/HCPCS: 99283; 99284